=== PATIENT | female | born 1945 | race Caucasian/White ===

== ENCOUNTER 2017-11-17 14:59 | Inpatient (IN) | payer OTHER ==
[~2017-11-17] VITALS: Ht 165.1 cm; Wt 88.3 kg
[~2017-11-17 14:59] MED LIST: ALPRAZOLAM0.25 MG; AVONEX30 MICROGR IM; Augmentin PO; BACTRIM DS PO; CITRACAL + D C1 EACH PO; CORDARONE200 MG PO; COUMADIN2 MG PO; Carafate PO; Ceftin PO; Cordarone, Pacerone PO; Coumadin Protocol PO; Coumadin,Jantoven PO; DRONABINOL5 MG PO; FERROUS SULFAT325 MG PO; Feosol PO; HEPARIN SO5000 UNIT/; HYDRALAZINE HC100 M1 PO; IMODIUM A-D2 M2 PO; IMODIUM A-D2 MG PO; LASIX20 MG PO; LEVEMIR100 UNIT/2; LEVOTHYROXINE200 MC1 PO; LOPERAMIDE2 M1 PO; Lasix PO; MECLIZINE HCL25 M3 PO; METOPROLOL TART50 MG PO; MULTIVITAMIN1 EAC1; MULTIVITAMIN1 EAC2 PO; Marinol PO; NITROFURANTOIN100 MG PO; NORVASC10 MG; PAXIL20 MG PO; PRILOSEC OTC20 M1; PRILOSEC OTC20 MG PO; PRILOSEC20 MG PO; PROCRIT2000 UNIT1; PROCRIT2000 UNIT1 IV; PROMETHAZINE HC25 M1 PO; Paxil PO; Protonix PO; RAPAMUNE1 MG; REMERON15 M2 PO; REQUIP3 MG PO; Remeron PO; Requip PO; SINEMET 25-11 TABLET; SINEQUAN25 MG PO; SYNTHROID175 MCG PO; SYNTHROID200 MCG PO; Tylenol Regular Stre PO; VITAMIN D32000 UNI1 PO; VITAMIN D35000 UNI1 PO; Vitamin B-12 PO; Vitamin D, Drisdol PO; WARFARIN SODIUM5 MG PO; WELLBUTRIN100 MG PO
[2017-11-17 15:35] LABS: HEMATOCRIT 33.4 % (36.0-46.0); MCH 29.4 PG (29.0-34.0); MCHC 32.9 G/DL (30.0-36.0); MCV 89.3 FL (83-99); PLATELET COUNT 89 K/uL (156-360); RBC DIS.WIDTH-CV 12.4 % (11.8-14.6); RBC DIS.WIDTH-SD 40.4 % (39-53); RED BLOOD COUNT 3.74 M/uL (3.80-5.20)
[2017-11-17 15:46] LABS: ALBUMIN 3.5 g/dL (3.2-4.8); CHLORIDE 108 mEq/L (99-109); POTASSIUM 5.3 mEq/L (3.7-5.4); SODIUM 138 mEq/L (136-147)
[2017-11-17 15:48] LABS: GLUCOSE 95 mg/dL (70-99)
[2017-11-17 15:49] LABS: TOTAL PROTEIN 6.4 g/dL (6.4-8.3)
[2017-11-17 15:50] LABS: TOTAL BILIRUBIN 0.4 mg/dL (0.0-1.0)
[2017-11-17 15:52] LABS: ALKALINE PHOSPHATASE 72 IU/L (3-129); CREATININE 1.4 mg/dL (0.6-1.3); GFR ESTIMATE (CALCULATED) 39 mL/min/
[2017-11-17 15:53] LABS: UREA NITROGEN (BUN) 22 mg/dL (9-23)
[2017-11-17 15:54] LABS: AST (GOT) 14 IU/L (2-34)
[2017-11-17 15:55] LABS: ALT (GPT) 12 IU/L (3-49)
[2017-11-17 15:56] LABS: TROP-I INTERPRETATION NEGATIVE; TROPONIN-I 0.03 ng/mL (0.0-0.30)
[2017-11-17 18:53] LABS: APPEARANCE CLOUDY ((CLEAR)); BILIRUBIN NEGATIVE; BLOOD MODERATE; COLOR YELLOW ((YELLOW)); GLUCOSE (STRIP) NEGATIVE; KETONES NEGATIVE; LEUKOCYTES MODERATE; NITRITE NEGATIVE; PROTEIN (STRIP) NEGATIVE; SPECIFIC GRAVITY 1.008 (1.000-1.030); UROBILINOGEN 0.2 MG/DL (0.2-1.0)
[2017-11-17 19:37] LABS: EPITHELIAL CELLS RARE /HPF; MUCUS NONE SEEN /LPF; RED BLOOD CELLS 0-5 /HPF (0-5); WHITE BLOOD CELLS 0-5 /HPF (0-5)
[2017-11-17 19:38] LABS: AMORPHOUS URATES CRYSTALS 2+; BACTERIA 1+ /HPF; UCUL ADDED? NO
[2017-11-17] MEDS ORDERED: REQUIP1 MG PO (20:12)
[2017-11-17] MEDS ORDERED: PLAVIX75 MG PO (20:16)
[2017-11-17] MEDS ORDERED: CYANOCOBAL1000 MCG/2 IM (20:16)
[2017-11-17] MEDS ORDERED: ADULT ASPIRIN R81 MG PO (20:16)
[2017-11-17] MEDS ORDERED: LISINOPRIL2.5 MG PO (20:17)
[2017-11-17] MEDS ORDERED: FUROSEMIDE20 MG PO (20:17)
[2017-11-17] MEDS ORDERED: METOLAZONE5 MG PO (20:18)
[2017-11-17] MEDS ORDERED: FEOSOL325 MG PO (20:18)
[2017-11-17] MEDS ORDERED: KLOR-CON M2020 MEQ PO (20:18)
[2017-11-17] MEDS ORDERED: APRESOLINE25 MG PO (20:19)
[2017-11-18] VITALS (8 sets, daily range): BP systolic 134–178; BP diastolic 60–75
[2017-11-18 07:58] LABS: HEMATOCRIT 32.5 % (36.0-46.0); HEMOGLOBIN 10.5 G/DL (11.9-15.5); MCH 28.9 PG (29.0-34.0); MCHC 32.3 G/DL (30.0-36.0); MCV 89.5 FL (83-99); PLATELET COUNT 86 K/uL (156-360); RBC DIS.WIDTH-CV 12.4 % (11.8-14.6); RBC DIS.WIDTH-SD 40.8 % (39-53); RED BLOOD COUNT 3.63 M/uL (3.80-5.20); WHITE BLOOD COUNT 4.8 K/uL (4.1-10.2)
[2017-11-18 08:06] LABS: INTER. NORMALIZED RATIO 1.1
[2017-11-18 08:33] LABS: ALBUMIN 3.2 G/DL (3.2-4.8); ALKALINE PHOSPHATASE 58 IU/L (3-129); ALT (GPT) 10 IU/L (3-49); AST (GOT) 12 IU/L (2-34); CHLORIDE 106 MEQ/L (99-109); CREATININE 1.2 MG/DL (0.6-1.3); GFR ESTIMATE (CALCULATED) 47 mL/min/; GLUCOSE 104 mg/dL (70-99); POTASSIUM 4.4 MEQ/L (3.7-5.4); SODIUM 136 MEQ/L (136-147); TOTAL BILIRUBIN 0.4 MG/DL (0.0-1.0); TOTAL PROTEIN 5.6 G/DL (6.4-8.3); UREA NITROGEN (BUN) 19 mg/dL (9-23)
[2017-11-18 14:05] LABS: C DIFF TOXIN NEGATIVE (NEGATIVE)
[2017-11-18 16:41] LABS: IRON 19 MCG/DL (35-150); TRANSFERRIN (TIBC) 163.9 mg/dL (215-380); TRANSFERRIN SATUR. 12 % (20-55)
[2017-11-18 16:57] LABS: FERRITIN 830 NG/ML (10-291)
[2017-11-19 07:31] VITALS: BP 158/68
[2017-11-19 11:26] LABS: FOLIC ACID (FOLATE) 14.6 NG/ML (5.0-22.0)
[2017-11-19 16:07] VITALS: BP 105/45
[2017-11-19 19:18] VITALS: BP 130/60
[2017-11-19 23:40] VITALS: BP 118/58
[2017-11-20 04:12] VITALS: BP 120/70
[2017-11-20 06:21] LABS: HEMATOCRIT 31.5 % (36.0-46.0); HEMOGLOBIN 9.9 G/DL (11.9-15.5); MCH 28.2 PG (29.0-34.0); MCHC 31.4 G/DL (30.0-36.0); MCV 89.7 FL (83-99); PLATELET COUNT 89 K/uL (156-360); RBC DIS.WIDTH-CV 12.2 % (11.8-14.6); RED BLOOD COUNT 3.51 M/uL (3.80-5.20); WHITE BLOOD COUNT 3.8 K/uL (4.1-10.2)
[2017-11-20 06:44] LABS: CHLORIDE 103 MEQ/L (99-109); CREATININE 1.8 MG/DL (0.6-1.3); GFR ESTIMATE (CALCULATED) 29 mL/min/; GLUCOSE 75 mg/dL (70-99); POTASSIUM 4.4 MEQ/L (3.7-5.4); SODIUM 137 MEQ/L (136-147); UREA NITROGEN (BUN) 25 mg/dL (9-23)
[2017-11-20 07:50] VITALS: BP 152/60
[2017-11-20 11:56] VITALS: BP 122/52
[2017-11-20 16:03] VITALS: BP 172/63
[2017-11-20 21:05] VITALS: BP 182/77
[2017-11-20 23:26] VITALS: BP 163/72
[2017-11-21 03:40] VITALS: BP 157/67
[2017-11-21 07:01] LABS: HEMATOCRIT 29.7 % (36.0-46.0); HEMOGLOBIN 9.5 G/DL (11.9-15.5); MCH 28.9 PG (29.0-34.0); MCV 90.3 FL (83-99); PLATELET COUNT 88 K/uL (156-360); RBC DIS.WIDTH-CV 12.1 % (11.8-14.6); RBC DIS.WIDTH-SD 40.2 % (39-53); RED BLOOD COUNT 3.29 M/uL (3.80-5.20); WHITE BLOOD COUNT 2.3 K/uL (4.1-10.2)
[2017-11-21 07:22] LABS: CHLORIDE 103 MEQ/L (99-109); CREATININE 1.4 MG/DL (0.6-1.3); GFR ESTIMATE (CALCULATED) 39 mL/min/; GLUCOSE 81 mg/dL (70-99); POTASSIUM 4.1 MEQ/L (3.7-5.4); SODIUM 138 MEQ/L (136-147); UREA NITROGEN (BUN) 19 mg/dL (9-23)
[2017-11-21 08:06] VITALS: BP 161/67
[2017-11-21 15:42] VITALS: BP 170/72
[2017-11-21 23:52] VITALS: BP 143/70
[2017-11-22 06:57] LABS: CHLORIDE 104 MEQ/L (99-109); CREATININE 1.3 MG/DL (0.6-1.3); GFR ESTIMATE (CALCULATED) 43 mL/min/; GLUCOSE 83 mg/dL (70-99); POTASSIUM 4.1 MEQ/L (3.7-5.4); SODIUM 137 MEQ/L (136-147); UREA NITROGEN (BUN) 14 mg/dL (9-23)
[2017-11-22 07:44] VITALS: BP 158/70
[2017-11-22 09:04] LABS: BASOPHIL (%) 0.5 % (0-1); EOSINOPHIL (%) 2.3 % (0-5); EOSINOPHIL COUNT 0.1 K/uL (0-0.3); HEMATOCRIT 29.6 % (36.0-46.0); HEMOGLOBIN 9.7 G/DL (11.9-15.5); IMMATURE GRANULOCYTE (%) 0.9 % (0.0-0.7); LYMPHOCYTE (%) 24.9 % (15-42); LYMPHOCYTE COUNT 0.6 K/uL (1.0-2.8); MCH 29.6 PG (29.0-34.0); MCHC 32.8 G/DL (30.0-36.0); MCV 90.2 FL (83-99); MONOCYTE (%) 5.9 % (3-12); MONOCYTE COUNT 0.1 K/uL (0-0.8); NEUTROPHIL (%) 65.5 % (45-76); NEUTROPHIL COUNT 1.5 K/uL (1.8-6.4); PLATELET COUNT 91 K/uL (156-360); RBC DIS.WIDTH-CV 12.1 % (11.8-14.6); RBC DIS.WIDTH-SD 40.2 % (39-53); RED BLOOD COUNT 3.28 M/uL (3.80-5.20); WHITE BLOOD COUNT 2.2 K/uL (4.1-10.2)
[2017-11-22] MEDS ORDERED: HYDROCODON-ACE1 EAC7 PO (12:43)
[2017-11-22 15:17] VITALS: BP 172/59
[2017-11-23 00:12] VITALS: BP 170/68
[2017-11-23 08:28] VITALS: BP 138/64
[2017-11-23 15:49] VITALS: BP 152/68
[2017-11-23 23:14] VITALS: BP 135/61
[2017-11-24 07:41] VITALS: BP 150/84
== END 2017-11-24 12:35 | DRG 481 ==
LOC: EME 14:59 → EDOF 21:04 → 3EAST 21:04 → ENRESERV 21:17 → 3EAST 11-18 00:07
PROVIDERS: Family Medicine; Internal Medicine; Physician Assistant Medical
PROC: 0QH634Z Insertion of Internal Fixation Device into Right Upper Femur, Percutaneous Approach (ICD-10-PCS; principal; 2017-11-19)
DX: M80.051A Age-related osteoporosis with current pathological fracture, right femur, initial encounter for fracture (principal); D61.818 Other pancytopenia; D63.8 Anemia in other chronic diseases classified elsewhere; L89.150 Pressure ulcer of sacral region, unstageable; I13.0 Hypertensive heart and chronic kidney disease with heart failure and stage 1 through stage 4 chronic kidney disease, or unspecified chronic kidney disease; E11.22 Type 2 diabetes mellitus with diabetic chronic kidney disease; I50.32 Chronic diastolic (congestive) heart failure; N18.3 Chronic kidney disease, stage 3 (moderate); G35 Multiple sclerosis; I48.0 Paroxysmal atrial fibrillation; G47.33 Obstructive sleep apnea (adult) (pediatric); G25.81 Restless legs syndrome; E03.9 Hypothyroidism, unspecified; E78.5 Hyperlipidemia, unspecified; R32 Unspecified urinary incontinence; F32.9 Major depressive disorder, single episode, unspecified; F40.240 Claustrophobia; I25.10 Atherosclerotic heart disease of native coronary artery without angina pectoris; K21.9 Gastro-esophageal reflux disease without esophagitis; Z16.24 Resistance to multiple antibiotics; Z66 Do not resuscitate; F41.9 Anxiety disorder, unspecified; E66.9 Obesity, unspecified; Z68.31 Body mass index [BMI] 31.0-31.9, adult; Z95.1 Presence of aortocoronary bypass graft; Z87.440 Personal history of urinary (tract) infections; Z86.74 Personal history of sudden cardiac arrest; Z98.84 Bariatric surgery status; Z93.3 Colostomy status; Z91.19 Patient's noncompliance with other medical treatment and regimen; Z86.711 Personal history of pulmonary embolism; Z86.718 Personal history of other venous thrombosis and embolism; Z79.02 Long term (current) use of antithrombotics/antiplatelets; Z79.82 Long term (current) use of aspirin; Z90.49 Acquired absence of other specified parts of digestive tract; Z95.2 Presence of prosthetic heart valve; Z99.3 Dependence on wheelchair
CPT/HCPCS: 71046; 72192; 73502; 76000; 80048; 80053; 80170; 81003; 82607; 82728; 82746; 83540; 84466; 84484; 85025; 85027; 85610; 85730; 86850; 86900; 86901; 87070; 87077; 87086; 87186; 87493; 87641; 93005; 93970; 97530 GO; 97530 GP; 99281; 99285; C1713; G8978 GP CM; G8979 GP CL; J0131; J0690; J0696; J1580; J1644; J1885; J2250; J3010; J3420; J7030; J7050; J7120; S0020